=== PATIENT | female | born 1955 | race Caucasian/White ===

== ENCOUNTER → 2020-09-27 11:34 | Outpatient (BNVA) | payer MEDICAID, SELFPAY | PROVIDERS: Family Provider Family Medicine; Referring Provider Family Medicine; Visit Provider Specialist | DX: M25.552 Pain in left hip (principal) | CPT/HCPCS: 73502 ==

== ENCOUNTER → 2020-10-04 10:11 | Outpatient (BNVA) | payer MEDICAID, SELFPAY | PROVIDERS: Family Provider Family Medicine; Visit Provider Specialist | DX: Z01.812 Encounter for preprocedural laboratory examination (principal); Z20.822 Contact with and (suspected) exposure to COVID-19 | CPT/HCPCS: 87635 ==

== ENCOUNTER 2020-10-05 14:54 | Outpatient (CLI) | payer MEDICAID, SELFPAY ==
--- NOTE | 2020-10-05 15:01 | CT_ITS ---
WS: [id number] CT scan of the left hip. Additional two-dimensional coronal and sagittal reconstruction was performed . MIP images were also performed. 10/05/2020 Clinical Data: S72.142A - Displaced intertrochanteric fracture of left f... Comparison: Left hip x-ray, 09/27/2020. DLP: 793.[address] scans at [facility] use at least one of these dose optimization techniques: automat ed exposure control; mA and/or kV adjustment per patient size (includes targeted exams where dose is matched to clinical indication); or iterative reconstruction. Findings: There is a sclerotic line in the left femoral neck which probably represents a healing fracture. The left femoral head is located within the acetabulum. The intertrochanteric enteric region shows no fracture. The adjacent left pelvis is unremarkable. The soft tissues are normal. CT/CT hip LT wo con* [id number] Impression: Probable incomplete and healing fracture of the left femoral neck.
== END 2020-10-05 14:55 | disposition home or self-care (01) ==
LOC: RADWPI 14:58
PROVIDERS: Visit Provider Specialist
DX: S72.142A Displaced intertrochanteric fracture of left femur, initial encounter for closed fracture (principal); X58.XXXA Exposure to other specified factors, initial encounter
CPT/HCPCS: 73700

== ENCOUNTER 2020-10-09 14:09 | Observation (INO) | payer MEDICAID, SELFPAY ==
[2020-10-08 16:15] VITALS: BMI 33.5
[2020-10-09] VITALS (19 sets, daily range): BP systolic 116–170; BP diastolic 55–82; PULSE 55–70; RESP 14–20; TEMP 36.3–36.8; O2SAT 93–100
--- NOTE | 2020-10-09 | XR_ITS ---
WS: [id number] Exam: XR hip LT 2-3V wo/w pel* [id number] Date/Time of Exam: 10/09/2020 12:00 AM Reason For Exam: gamma nail An intramedullary loly and femoral neck screw stabilize a fracture of the femoral neck. The orthopedic device is in satisfactory position. XR/XR hip LT 2-3V wo/w pel* [id number] IMPRESSION: 1. ORIF involving a fracture of the proximal femur in satisfactory position.
--- NOTE | 2020-10-09 | SCC_ITS ---
Procedure Done: Internal fixation right intertrochanteric, nonunion. 185.3 seconds of fluoroscopic guidance, for a cumulative dose of 26.22 mGy, was provided to Dr. Murray by the radiology department. C-arm images of the LEFT hip were saved for the patient's permanent record. [facility]ITALDeidre
--- NOTE | 2020-10-09 11:25 | W.PM.OPSUD ---
Surgery/Procedure H&P Update DATE OF PROCEDURE: October 09, 2020 DATE H&P PERFORMED: 09/27/20 H&P UPDATE INFORMATION: I have reviewed H&P completed within last 30 days, I have examined patient prior to procedure, No changes to prior documentation and H[place] is [place] [facility] [place] indicated PREOP DIAGNOSIS: Closed intertrochanteric fracture left hip PLANNED PROCEDURE: Operation Date: 10/09/20 13:00 Proposed Procedures p PROPHYLACTIC INTERNAL FIXATION WITH GAMMA NAIL LEFT HIP 05879 s72.142A(Left) - Le Murray MD Related Problem List Diagnoses (1) Closed intertrochanteric fracture of left hip: Qualifiers: Encounter type: initial encounter Fracture alignment: nondisplaced Qualified Code(s): S72.145A - Nondisplaced intertrochanteric fracture of left femur, initial encounter for closed fracture
[2020-10-09] MEDS: acetaminophen 1,000 MG/100 ML PIGGYBACK 400 MG IV (11:36)
[2020-10-09] MEDS: sodium chloride 0.9% 1,000 ML 30 ML IV (11:36)
[2020-10-09 11:42] LABS: Basophils # 0.1 10^3/uL (0.0-0.1); Basophils % 0.6 %; Eosinophils # 0.2 10^3/uL (0.0-0.8); Eosinophils % 1.8 %; Hematocrit 35.6 % (37.0-47.0); Hemoglobin 11.5 g/dL (11.5-15.3); Lymphocytes # 3.4 10^3/uL (0.8-4.8); Lymphocytes % 40.2 %; Mean Corpuscular HGB Conc 32.3 g/dL (30.0-36.0); Mean Corpuscular Volume 102.3 fL (81-99); Mean Platelet Volume 11.3 fL (7.4-10.4); Monocytes # 0.4 10^3/uL (0.2-0.9); Neutrophils # 4.46 10^3/uL (1.8-7.7); Neutrophils % 52.2 %; Nucleated Red Blood Cells % 0 %; Platelet Count 186 10^3/cmm (130-400); Red Blood Count 3.48 10^6/uL (4.1-5.3); Red Cell Distribution Width 11.9 % (12.1-15.1); White Blood Count 8.5 10^3/uL (4.0-10.0)
[2020-10-09 11:57] LABS: Add Urine Microscopic? YES; Bilirubin Urine Neg (Negative); Blood Urine Neg (Negative); Glucose Urine UA Norm (Normal); Ketones Urine Negative (Negative); Leukocyte Esterase Urine Negative (Negative); Nitrate Urine Positive (Negative); Protein Urine 1+ (Negative); Urine Appearance Clear (CLEAR); Urine Color Straw (Yellow); Urobilinogen Urine Norm (Negative); pH Urine 5 (5-7)
[2020-10-09 12:08] LABS: Bacteria Urine 4+ /hpf; RBC Urine 0-4 /hpf (0-2)
--- NOTE | 2020-10-09 12:08 | P.ANESASSM_ITS ---
Pre-Anesthetic Assessment Pre-Anesthetic Assessment: Height/Weight: Height 1.6 m Weight 85.729 kg Temp Pulse Resp BP Pulse Ox 97.9 F 55 L 16 170/79 97 10/09/20 11:27 10/09/20 11:27 10/09/20 11:27 10/09/20 11:27 10/09/20 11:27 Preop Diagnosis: Closed intertrochanteric fracture left hip Proposed Procedure: Operation Date: 10/09/20 13:00 Proposed Procedures p PROPHYLACTIC INTERNAL FIXATION WITH GAMMA NAIL LEFT HIP 41781 s72.142A(Left) - Le Murray MD Was Beta Kim taken within 24 hours: N/A Was Clonidine taken within 24 hours: N/A Last intake: Intake Last Liquid Date 10/08/20 Last Liquid Time 20:00 Last Solid Date 10/08/20 Last Solid Time 20:00 Social: Social History: No alcohol and No tobacco Exam: Pre-Anes Outpt Exam: alert, oriented x 3, clear to auscultation bilaterally and regular rate & rhythm Airway: Submandibular: WNL Cervical ROM: WNL MP: 2 Dentition: Full CV/HEM: CV/HEM: HTN Metabolic: Metabolic: Morbid obesity Musc/skel: Musc/skel: Fibromyalgia Comments: Chronic pain Neuropsych: Neuropsych: Anxiety Anesthetic Plan: ASA status: 3 Anesthesia: Choice (SAB v GA) Risk of > 500 ml blood loss (7ml/kg in children): No Meds/Allergies Current Medications: Current Medications Generic Name Dose Route Start Last Admin Trade Name Freq PRN Reason Stop Dose Admin Sodium Chloride 1,000 mls @ 30 ml s/hr 10/09/20 09:45 10/09/20 11:36 Sodium Chloride 0.9% IV 10/10/20 09:44 30 mls/hr .Q24H ANDRE Administration PFSH Anesthesia PFSH: Social History (Updated 10/08/20 @ 16:10 by Brittny Mandujano) Smoking and tobacco status: current every day smoker Data Anesthesia CBC & Chem 7: 10/09/20 11:30 10/09/20 11:30 Other Labs: Laboratory Results - last 48 hr 10/09/20 10/09/20 11:15 11:30 WBC 8.5 RBC 3.48 L Hgb 11.5 Hct 35.6 L MCV 102.3 H MCH 33.0 MCHC 32.3 RDW 11.9 L Plt Count 186 MPV 11.3 H Neut % (Auto) 52.2 Lymph % (Auto) 40.2 Lamb % (Auto) 5.0 Eos % (Auto) 1.8 Baso % (Auto) 0.6 Neut # (Auto) 4.46 Lymph # (Auto) 3.4 Lamb # (Auto) 0.4 Eos # (Auto) 0.2 Baso # (Auto) 0.1 Nucleated RBC % (auto) 0 Nucleated RBCs # 0.0 Urine Color Straw Urine Appearance Clear Urine pH 5 Ur Specific [place] 1.020 Urine Protein 1+ H Urine Glucose (UA) Norm Urine Ketones Negative Urine Blood Neg Urine Nitrate Positive H Urine Bilirubin Neg Urine Urobilinogen Norm Ur Leukocyte Esterase Negative Amorphous Sediment Not Reportable Cardiac Studies: 2 No Data to Display
[2020-10-09 12:09] LABS: Add Urine Culture? No
[2020-10-09 12:14] LABS: Alanine Aminotransferase 9 U/L (0-33); Alkaline Phosphatase 83 IU/L (35-105); Anion Gap 13.3 (5-19); Aspartate Amino Transferase 12 U/L (0-32); Blood Urea Nitrogen 24 mg/dL (8-23); Calcium 8.2 mg/dL (8.5-10.5); Carbon Dioxide 24 mmol/L (22-29); Chloride 108 mmol/L (98-107); Globulin 2.7 g/dL (1.3-4.6); Glomerular Filtration Rate 30.3 mL/min (90-130); Glucose 78 mg/dL (65-115); Osmolality Calculated 295 mOsm/kg (285-295); Potassium 4.3 mmol/L (3.5-5.1); Sodium 141 mmol/L (136-145); Total Bilirubin 0.2 mg/dL (0.15-1.2); Total Protein 6.7 g/dL (6.6-8.7)
[2020-10-09] MEDS: ceFAZolin 1,000 mg SDV 1000 MG IRRIGATION (13:08)
--- NOTE | 2020-10-09 14:07 | P.OP_ITS ---
Operative Report Date of procedure: October 09, 2020 Pre-op Diagnosis: Closed intertrochanteric fracture left hip Post-op diagnosis: same Post-op Findings: Thick cortical bone Procedure Done: Internal fixation right intertrochanteric, nonunion. Implants: The Brittny gamma 3 nail system utilizing an 11 mm x 180 mm x 120 degree gamma 3 trochanteric nail with a 10.5 mm x 85 mm gamma 3 lag screw Specimens removed/disposition: None Pathology: none sent Surgeon: Le Murray Advertising Specialist: None Anesthesia: General (LMA, ASA 3) Estimated blood loss (mL): 50 IV fluids (mL): 900 Urine output (mL): 100 Complications: None Findings: Thickened cortical bone in the femoral canal, dense bone in the medial calcar. Condition: stable Disposition: PACU (Then to floor for postoperative rehabilitation) Brief History: This 65-year-old woman presented with complaints of left hip pain. The date of injury was August 25, 2020. The patient describes her pain at the time of initial presentation to sc as a 9 out of 10. This constant stabbing pain started on [address] scan confirmed an incomplete intertrochanteric fracture with early healing, but it was not healed. Procedure: Patient is brought to the operating theater. After undergoing adequate general anesthesia with LMA, the patient was transferred to the fracture table, positioned on the table and fluoroscopic guidance obtained throughout the surgical procedure. Prior to the commencement of the surgical procedure, a surgical pause was performed. At the time of the surgical pause, we confirmed the site and side of surgery as well as preoperative surgical markings and appropriate and timely administration of IV antibiotics, Ancef 2 g. Availability of equipment was also confirmed. Fluoroscopy was used throughout the surgical procedure. An incision was then made slightly above the greater trochanter to allow access to the greater trochanter. This had to be an extended incision secondary to the soft tissue and subcutaneous fatty tissues which were significant. An awl was used to enter the greater trochanter and a guidewire was subsequently placed. Once the guidewire was confirmed to be in appropriate position in AP and lateral planes, reaming was accomplished over this to allow for the proximal diameter of the nail. Guidewire was then removed, but secondary to the size of the patient's canal distally, reaming was required. We reamed to a 12.5 mm distally. A size 11 mm x 180 mm x 120 degree gamma nail was placed into appropriate position with positioning being confirmed in AP and lateral planes on the x-ray. It passed with some difficulty. Guidewire was then passed through the jigging system into the femoral head. We wanted to be center or slightly inferior and posterior to center. Guidewire was placed into appropriate position. Once the guidewire was in appropriate position and this position was confirmed by x-ray. This was then measured and we chose an 85 mm lag screw. We reamed to allow for the lag screw to be placed. The 85 mm lag screw was then passed into the femoral head through the trochanteric nail. This was passed uneventfully and again position was confirmed in AP and lateral planes. Compression was obtained under fluoroscopic guidance. The set screw was then placed in position, tightened completely, and subsequently backed off one-eighth turn. Once the screw was in position, we confirmed appropriate placement of the components, and we removed the jigging system. Due to the fit of the nail, decision was made not to place a distal screw as this was not an unstable fracture and it was felt to not be necessary. Attention was then directed to closure. The hip was copiously irrigated with normal saline with antibiotics. Following this it was dried and closed. Subcutaneous tissues were closed with 2-0 Monocryl, and the skin was closed with 3-0 Monocryl. This was then covered with Dermabond, Steri-Strips, and OpSite. The patient was removed from the fracture table and returned to recovery in satisfactory condition. The patient will be discharged to the floor for postoperative rehabilitation and pain management. There were no specimens obtained. Associated Problem List Diagnoses (1) Closed intertrochanteric fracture of left hip: Qualifiers: Encounter type: initial encounter Fracture alignment: nondisplaced Qualified Code(s): S72.145A - Nondisplaced intertrochanteric fracture of left femur, initial encounter for closed fracture
[2020-10-09] MEDS: fentaNYL 50 mcg/mL INJ 2mL IVP (14:30)
--- NOTE | 2020-10-09 14:45 | ANE.PACU2 ---
Inpatient post-anesthesia follow up: Airway intact: Yes Vital signs: Temperature 97.4 F Pulse Rate 68 Respiratory Rate 15 Blood Pressure 132/68 Pulse Oximetry 93 Oxygen Delivery Me thod Room Air Oxygen Flow Rate 8 Fraction of Inspir ed Oxygen Hydration adequate: Yes Nausea and vomiting: No Pain level: 3 Mental status: Baseline
[2020-10-09] MEDS: HYDROmorphone 1 mg/mL INJ 1 mL 0.5 MG IVP (14:48)
[2020-10-09] MEDS: sodium chloride 0.9% 1,000 ML 100 ML IV (14:54)
[2020-10-09] MEDS: oxyCODONE 5 mg IR Tab/Cap PO (16:36)
[2020-10-09] MEDS: gabapentin 300 mg Capsule PO (18:01)
[2020-10-09] MEDS: acetaminophen 500 mg Tablet 1000 MG PO (18:01)
[2020-10-09 18:17] LABS: Charge for UA Resulting for Rev
--- NOTE | 2020-10-09 18:40 | PC.NURSE ---
SHIFT SUMMARY PATIENT HAS DONE WELL SINCE ARRIVING TO THE FLOOR FROM THE OR. PAIN WELL CONTROLLED WITH ORAL PAIN MEDICATION. SURGICAL SITE IS C/D/I. LIN CATHETER IN PLACE. NEW URINE SENT TO LAB FOR A REPEAT UA. VITALS STABLE. PATIENT CURRENTLY RESTING IN BED WITH NO COMPLAINTS AT THIS TIME.
[2020-10-09 18:41] LABS: Add Urine Microscopic? YES; Bilirubin Urine Neg (Negative); Blood Urine Neg (Negative); Glucose Urine UA Norm (Normal); Ketones Urine Negative (Negative); Leukocyte Esterase Urine Negative (Negative); Nitrate Urine Negative (Negative); Protein Urine 1+ (Negative); Urine Appearance Clear (CLEAR); Urine Color Yellow (Yellow); Urobilinogen Urine Norm (Negative); pH Urine 5 (5-7)
[2020-10-09] MEDS: TRAMadol 50 mg Tablet PO (19:59)
[2020-10-10] VITALS (8 sets, daily range): BP systolic 116–130; BP diastolic 62–76; PULSE 51–58; RESP 15–22; TEMP 36.7–36.8; O2SAT 91–96
[2020-10-10] MEDS: oxyCODONE 5 mg IR Tab/Cap PO ×3 (01:12→14:01)
[2020-10-10] MEDS: enoxaparin 40 mg/0.4 mL Syringe SUBCUT (01:15)
[2020-10-10] MEDS: ALPRAZolam 0.5 mg Tablet PO (01:18)
[2020-10-10] MEDS: acetaminophen 500 mg Tablet 1000 MG PO ×2 (03:34→10:09)
--- NOTE | 2020-10-10 04:38 | PC.NURSE ---
SHIFT NOTE pt rested in bed without difficulty, pain meds ordered and administered effective, pt verbalized wanting Xanax especially at bedtime to assist with sleeping. surgical site dressing CDI, no drainage or bruising noted, pt able to move left foot but has severe pain when attempting to lift left leg
[2020-10-10] MEDS: gabapentin 300 mg Capsule PO (08:43)
[2020-10-10] MEDS: amlodipine 10 mg Tablet PO (08:45)
[2020-10-10] MEDS: lisinopril 20 mg Tablet PO (08:56)
[2020-10-10] MEDS: TRAMadol 50 mg Tablet PO (10:09)
--- NOTE | 2020-10-10 12:58 | P.DS_ITS ---
Discharge Providers Date of Admission: 10/09/20 14:09 Date of Discharge: October 10, 2020 Attending Provider at Admission: Le Murray MD Attending Provider at Discharge: Le Murray MD Diagnoses at Discharge Discharge Diagnosis (1) Closed intertrochanteric fracture of left hip: Status: Acute Qualifiers: Encounter type: initial encounter Fracture alignment: nondisplaced Qualified Code(s): S72.145A - Nondisplaced intertrochanteric fracture of left femur, initial encounter for closed fracture Reason for Visit Reason for Visit: PROPHYLACTIC INTERNAL FIXATION LEFT GAMMA NAIL Brief History: This 65-year-old woman presented with complaints of left hip pain. The date of injury was August 25, 2020. The patient describes her pain at the time of initial presentation to me as a 9 out of 10. This constant stabbing pain started on [address] scan confirmed an incomplete intertrochanteric fracture with early healing, but it was not healed. Hospital Course Hospital Course This 65-year-old woman presented with complaints of left hip pain secondary to an incomplete fracture of the intertrochanteric area with apparent nonunion. There was some healing, but this was incomplete. The patient had significant pain rating it a 9 of 10. After discussion with the patient, we elected to proceed with an internal fixation of her intertrochanteric fracture utilizing a gamma nail. The patient underwent this procedure yesterday and she tolerated it well. Last evening, even just following the surgery, she was more comfortable than prior to her surgical intervention. On the first postoperative day, the patient is seen and she is comfortable. Her thigh is soft and nontender. She is neurologically intact. She feels she is ready and safe to be discharged to home. Although she lists aspirin as being a nontolerated medication, upon discussion with her, she notes that she can tolerate baby aspirin. Therefore, upon discharge, we will use baby aspirin twice daily for her DVT prophylaxis. Is expected that she will be active at the time of discharge. Physical Exam Const: COMMON NORMALS: no acute distress, average body habitus, patient oriented x3 and alert GENERAL APPEARANCE: cooperative and comfortable ORIENTATION/CONSCIOUSNESS: Yes awake HENMT: COMMON NORMALS: normocephalic and atraumatic HEAD & SCALP: normocephalic and atraumatic Eye: GENERAL EYE: appearance normal, both eyes and all related structures Chest: COMMONS NORMALS: normal inspection of the chest Resp: COMMON NORMALS: normal respiratory effort EFFORT & INSPECTION: Yes able to speak in complete sentences and Yes symmetric chest movement Extremity: LEFT LOWER EXTREMITY: Yes hip joint Left hip: Yes inspection (Dressings are dry and intact. There is no bleeding.), Yes palpation (No tenderness to palpation.), Yes ROM (The patient is comfortable with range of motion.) and Yes neurovascular exam (Intact distally.) Neuro: COMMON NORMALS: patient oriented x3 SENSORIUM/ORIENTATION: Yes alert Psych: COMMON NORMALS: mental status grossly normal APPEARANCE: Yes grossly normal ATTITUDE: Yes calm and Yes engaged ATTENTION/CONCENTRATION: Yes attention grossly intact Skin: COMMON NORMALS: no rashes or lesions noted GENERAL SKIN EXAM: no ra shes or lesions noted Urinary Catheter Management^: Ruiz: Cath Placed During This Visit: yes, but has since been removed by the nurse Reason for Continuing Indwelling Catheter: Decision to DC Catheter Urinary Catheter Date of Insertion: 10/09/20 Urinary Catheter Time of Insertion: 12:25 Date Urinary Catheter Removed: 10/10/20 Time Urinary Catheter Discontinued: 06:42 Discharge Data Data Completed and Pending: Completed Studies During Hospitalization Category Date Time Status XR hip LT 2-3V wo /w pel* [id number] Rout ine Exams 10/09/20 Completed Labs from last 24 hours 10/09/20 18:04 Urine Color Yellow Urine Appearance Clear Urine pH 5 Ur Specific Gravit y 1.020 Urine Protein 1+ H Urine Glucose (UA) Norm Urine Ketones Negative Urine Blood Neg Urine Nitrate Negative Urine Bilirubin Neg Urine Urobilinogen Norm Ur Leukocyte Kavita ase Negative Vitals: Last Vital Signs Temp 98.2 F 10/10/20 11:56 Pulse 51 L 10/10/20 11:56 Resp 15 10/10/20 11:56 BP 130/62 10/10/20 11:56 Pulse Ox 96 10/10/20 11:56 Discharge Plan Discharge Patient Disposition: Home Condition: Stable Prescriptions: New oxycodone 5 mg Tablet 5 mg PO Q4H PRN (Reason: Moderate To Severe Pain) 7 Days Qty: 30 RF: 0 Aspirin Low Dose 81 mg tablet,delayed release (DR/EC) 81 mg PO BID Qty: 60 RF: 0 Continued lisinopril 20 mg Tablet 20 mg PO DAILY RF: 0 tramadol 50 mg Tablet 50 mg PO BID PRN (Reason: pain) RF: 0 alprazolam [Xanax] 0.5 mg Tablet 0.5 mg PO BID PRN (Reason: Anxiety) RF: 0 amlodipine 10 mg Tablet 10 mg PO DAILY RF: 0 gabapentin 300 mg Capsule 300 mg PO BID RF: 0 Discharge Orders: Discharge Order (Routine); Ordered 10/10/20 Ordered By: Le Murray Referrals: Le Murray MD [Physician] - 10/22/20 8:45 am Discharge Diet: Advance as tolerated and Usual diet Discharge Activity: Increase activity as tolerated Activity Restrictions/Additional Instructions: You may be weightbearing as tolerated. Keep wound covered. Follow-up as scheduled. Discharge Attestations Time Spent in Discharge Care*: greater than 30 min Specific Discharge Activities: educating patient and documenting/other paperwork Quality Metrics Clinical Quality Measures During this hospital stay, did patient experience: None Coding Level of Care Code Acute Chg FW DC note Exam Comprehensive Diagnoses Closed intertrochanteric fracture of left hip S72.145A Encounter type: initial encounter Fracture alignment: nondisplaced
--- NOTE | 2020-10-12 20:18 | PC.RESP ---
Smoking Cessation information sent to patient.
== END 2020-10-10 14:36 | disposition home or self-care (01) ==
LOC: MEDSURG 14:10
PROVIDERS: Admitting Provider Specialist; Visit Provider Specialist
PROC: (CPT 27245; principal; 2020-10-09 12:40)
DX: S72.145A Nondisplaced intertrochanteric fracture of left femur, initial encounter for closed fracture (principal); X58.XXXA Exposure to other specified factors, initial encounter; I10 Essential (primary) hypertension; E66.01 Morbid (severe) obesity due to excess calories; Z68.33 Body mass index [BMI] 33.0-33.9, adult; M79.7 Fibromyalgia; F41.9 Anxiety disorder, unspecified; F17.210 Nicotine dependence, cigarettes, uncomplicated
CPT/HCPCS: 27245; 36415; 73502; 76000; 80053; 81001; 81003; 85025; 96365; 96372; 97165; C1713; G0378; J0690; J1100; J1170; J1650; J2250; J2405; J2704; J3010; J7030

== ENCOUNTER 2021-12-05 07:25 | Outpatient (CLI) | payer MEDICARE, MEDICAID, SELFPAY ==
--- NOTE | 2021-12-05 07:32 | ECG_ITS ---
[facility] Test Date: 2021-12-05 Pat Name: Mere Richardson Department: Room: Gender: Female [employer]: : 1955 Requested By: Esau Henley Order Number: [id number] Angel MD: Marni Grimm M.D. Interpretive Statements NAME OF STUDY: LEXISCAN SESTAMIBI STRESS TEST INDICATION: Shortness of Breath PROCEDURE: At the baseline, the blood pressure was 134/82 mmHg with a heart rate of 65 bpm. The electrocardiogram showed normal sinus rhythm, normal axis. Poor anterior R wave progression. The Lexiscan was infused over a period of 20 seconds. A total of 0.4 milligrams of Lexiscan was infused. The stress phase was continued for a total of 5 minutes. Heart rate at the end of the stress phase was 71 bpm with a blood pressure of 128/60 mmHg. The EKG at the peak infusion revealed sinus rhythm with no significant ST-T wave changes. Sestamibi was injected 20 seconds after the Lexiscan infusion. Blood pressure at the end of the recovery phase was 130/63 mmHg with a heart rate of 69 beats per minute. CONCLUSION: 1. No significant EKG changes with the LexiScan infusion. 2. No LexiScan induced chest pain or cardiac arrhythmia. 3. Normal blood pressure and heart rate response. 4. Sestamibi/sestamibi perfusion scan pending; see separate report. Electronically Signed On 12-11-2021 17:27:37 CDT by Marni Grimm M.D. [id number]
--- NOTE | 2021-12-05 07:33 | NMCV_ITS ---
NM kelsey perf SPECT r/s* [id number] Mere Richardson Age: 66 Gender: F : 1955 Exam Date: 12/05/2021 08:48 Ordering Phys: Esau Henley Technologist: FROILAN Castillo Exam Location: [facility] Indications: ASHD STRESS TEST Please see separate stress test report in [facility] for full findings IMAGE PROTOCOL Rest/Stress 1 Lexiscan Day Radiopharmaceutical Dose (mCi) Administration Site Administered by Rest: Tc-99m 11.0 IV FRIOLAN Lanza Sestamibi Stress:Tc-99m 31.9 IV FROILAN Castillo Sestamipayam Rest: 05-Dec-2021 60 Discovery 630 Stress: 05-Dec-2021 30 Discovery 630 0.4mg Lexiscan. Supine position only as patient was unable to lay prone. SPECT RESULTS Technical Quality: Excellent Raw Data Analysis: Normal Image Corrections: No attenuation or motion correction applied Summed Stress Score: 7 Summed Rest Score: 8 Summed Difference Score: 1 PERFUSION FINDINGS Small sized perfusion abnormality of mild severity of mid to apical inferolateral, apical inferior and apical wall on rest images with subtle reversibility in apical septal and apical dumont on stress images. FUNCTIONAL RESULTS (calculated via Gated SPECT) Stress Image LV EF (%): 75 Stress EDV (mL):85 TID: 0.77 Stress ESV (mL):21 FUNCTIONAL FINDINGS: The left ventricle is normal in size. Transient Ischemia Dilatation of 0.77. There is normal left ventricular systolic function. The left ventricular ejection fraction is normal with a value of 75%. There is normal left ventricular wall thickening. Normal end-diastolic and end-systolic volumes. IMPRESSIONS 1. Small sized perfusion abnormality of mild severity of mid to apical inferolateral, apical inferior and apical dumont with subtle reversibility in apical septal and apical dumont. 2. This may represent old myocardial infarction in circumflex artery territory with minimal nuris-infarct ischemia or attenuation artifact. 3. Overall left ventricular systolic function is normal without regional wall motion abnormalities, LVEF=75%. 4. No significant EKG changes with lexiscan infusion. Refer to separate report for details. Marni Grimm MD (Electronically Signed) Final Date: 11 December 2021 17:34 S
[2021-12-05 07:41] VITALS: BMI 33.1
[2021-12-05] MEDS: regadenoson 0.4 Mg/5 ml Syringe IVP (09:22)
[2021-12-05 10:39] VITALS: BP 123/62; PULSE 70
== END 2021-12-05 07:26 | disposition home or self-care (01) ==
LOC: CDL 07:27
PROVIDERS: PCP Family Medicine; Visit Provider Family Medicine
DX: I25.10 Atherosclerotic heart disease of native coronary artery without angina pectoris (principal); R94.39 Abnormal result of other cardiovascular function study
CPT/HCPCS: 78452; 93017; A9500; J2785

== ENCOUNTER → 2022-09-08 14:09 | Outpatient (BNVA) | payer MEDICARE, MEDICAID, SELFPAY | PROVIDERS: PCP Family Medicine; Visit Provider Internal Medicine Cardiovascular Disease | DX: R06.02 Shortness of breath (principal); M79.89 Other specified soft tissue disorders; Z86.73 Personal history of transient ischemic attack (TIA), and cerebral infarction without residual deficits; R07.89 Other chest pain; F17.200 Nicotine dependence, unspecified, uncomplicated | CPT/HCPCS: 80048; 83880; 99204 ==

== ENCOUNTER → 2024-12-27 08:13 | Outpatient (BNVA) | payer MEDICARE, MEDICAID, SELFPAY | PROVIDERS: PCP Family Medicine; Referring Provider Family Medicine; Visit Provider Specialist | DX: M79.89 Other specified soft tissue disorders (principal); R20.0 Anesthesia of skin; R20.2 Paresthesia of skin | CPT/HCPCS: 95911 ==